=== PATIENT | female | born 2000 | race Caucasian/White ===

== ENCOUNTER 2024-08-05 02:00 | Emergency (ER) | payer MEDICARE ==
[2024-08-05] MEDS ORDERED: Sodium Chloride 0.9% 10 ML Syringe FLUSH PRN (02:15)
[2024-08-05] MEDS: Sodium Chloride 0.9% 1,000 ML IV ONE (02:57)
[2024-08-05 03:15] LABS: BASOPHILS ABSOLUTE AUTO 0.04 K/uL (0.02-0.10); BASOPHILS PERCENT AUTO 0.7 % (0.0-0.5); EOSINOPHILS ABSOLUTE AUTO 0.02 K/uL (0.04-0.40); EOSINOPHILS PERCENT AUTO 0.3 % (1.0-5.0); HEMOGLOBIN 11.2 g/dL (11.5-16.5); LYMPHOCYTES PERCENT AUTO 23.2 % (20.0-40.0); MEAN CORPUSCULAR HEMOGLOBIN 20.6 pg (27.0-32.0); MEAN CORPUSCULAR HGB CONC 31.1 g/dL (31.0-35.0); MEAN CORPUSCULAR VOLUME 66 fL (76-96); MEAN PLATELET VOLUME 11.4 fL (6.0-10.0); MONOCYTES ABSOLUTE AUTO 0.64 K/uL (0.20-0.80); MONOCYTES PERCENT AUTO 10.6 % (3.0-10.0); NEUTROPHILS ABSOLUTE AUTO 3.93 K/uL (2.00-7.50); NEUTROPHILS PERCENT AUTO 65.2 % (45.0-70.0); PLATELET COUNT,PLT 309 K/uL (150-500); RED BLOOD CELL COUNT 5.43 M/uL (3.80-5.80); RED CELL DISTRIBUTION WIDTH 16.5 % (11.0-16.0)
[2024-08-05 03:29] LABS: APPEARANCE,URINE CLEAR (CLEAR); BILIRUBIN,URINE MODERATE (NEGATIVE); COLOR,URINE YELLOW; GLUCOSE,URINE NEGATIVE (NEGATIVE); KETONES,URINE >=160 mg/dL (NEGATIVE); PROTEIN,URINE 100 mg/dL (NEGATIVE)
[2024-08-05 03:30] LABS: BACTERIA,URINE MODERATE /HPF; LEUKOCYTE ESTERASE,URINE NEGATIVE (NEGATIVE); NITRITE,URINE NEGATIVE (NEGATIVE); OCCULT BLOOD,URINE NEGATIVE (NEGATIVE); RBC,URINE NOT SEEN /HPF; SQUAMOUS EPITHELIAL CELLS,UR MODERATE /HPF; WBC,URINE 0-5 /HPF
[2024-08-05 03:35] LABS: A/G RATIO 1.2 (0.8-2.0); ANION GAP 20.9 mmol/L (5.0-15.0); BILIRUBIN TOTAL 0.6 mg/dL (0.0-1.0); BUN/CREATININE RATIO 14.9 (6-25); CARBON DIOXIDE,CO2 22.5 mmol/L (21.0-32.0); CREATININE 0.67 mg/dL (0.55-1.02); EST CRCL DRUG DOSING (CG) 91.4 mL/min; POTASSIUM,K 3.4 mmol/L (3.5-5.1); PROTEIN TOTAL,TP 7.3 g/dL (6.4-8.2)
[2024-08-05 03:47] LABS: TROPONIN I HIGH SENSITIVITY 5.3 pg/ml (<=60.4); TSH ULTRASENSITIVE 2.637 uIU/mL (0.358-3.740)
[2024-08-05 03:57] LABS: INFLUENZA A NAA POSITIVE (NEGATIVE); INFLUENZA B NAA NEGATIVE (NEGATIVE)
[2024-08-05 04:06] LABS: CORONAVIRUS COVID-19 NAA NEGATIVE (NEGATIVE)
[2024-08-05 06:15] VITALS: PULSE 88
[2024-08-05 08:24] VITALS: BP 108/66
== END 2024-08-05 08:28 | disposition home or self-care (01) ==
LOC: LB.ED 02:00
DX: J10.1 Influenza due to other identified influenza virus with other respiratory manifestations (principal); J45.909 Unspecified asthma, uncomplicated; E66.9 Obesity, unspecified; Z68.35 Body mass index [BMI] 35.0-35.9, adult; Z79.899 Other long term (current) drug therapy; Z88.0 Allergy status to penicillin; Z88.8 Allergy status to other drugs, medicaments and biological substances
CPT/HCPCS: 0240U; 36415; 80053; 81001; 81025; 84443; 84484; 85025; 85379; 93005; 96360; 99285-25; A0425; A0429; J7030

== ENCOUNTER 2024-09-06 12:24 | Emergency (ER) | payer MEDICARE ==
[2024-09-06] MEDS: Ketorolac 30 MG/ML SDV IM ONE (13:43)
[2024-09-06 16:41] VITALS: BP 138/90; PULSE 89
== END 2024-09-06 16:23 | disposition home or self-care (01) ==
LOC: LB.ED 12:24
DX: G44.209 Tension-type headache, unspecified, not intractable (principal); J45.909 Unspecified asthma, uncomplicated; Z88.0 Allergy status to penicillin; Z88.8 Allergy status to other drugs, medicaments and biological substances; Z79.899 Other long term (current) drug therapy; Z79.51 Long term (current) use of inhaled steroids
CPT/HCPCS: 70450; 96372; 99284; J1885

== ENCOUNTER 2024-09-13 14:49 | Emergency (ER) | payer MEDICAID, MEDICARE ==
[2024-09-13] MEDS ORDERED: Sodium Chloride 0.9% 10 ML Syringe FLUSH PRN (16:06)
[2024-09-13] MEDS: Sodium Chloride 0.9% 1,000 ML IV SCH (16:20)
[2024-09-13] MEDS: Ondansetron 4 MG/2 ML SDV IVPUSH ONE (16:26)
[2024-09-13] MEDS: Ketorolac 15 MG/ML SDV IVPUSH ONE (16:26)
[2024-09-13] MEDS: Lidocaine 1% 10 ML MDV INJECT ONE (17:01)
[2024-09-13 17:25] VITALS: BP 119/53; PULSE 77
== END 2024-09-13 17:50 | disposition home or self-care (01) ==
LOC: LB.ED 14:49
DX: R51.9 Headache, unspecified (principal); E66.9 Obesity, unspecified; Z79.899 Other long term (current) drug therapy; Z88.0 Allergy status to penicillin; Z88.8 Allergy status to other drugs, medicaments and biological substances; Z68.29 Body mass index [BMI] 29.0-29.9, adult
CPT/HCPCS: 96361; 96374; 96375; 99284-25; A0425; A0428; J1885; J2405; J7030